=== PATIENT | male | born 1955 | race African-American/Black ===

== ENCOUNTER 2022-11-17 11:45 | Inpatient (IN) ==
[2022-11-17] MEDS ORDERED: SODIUM CHLORIDE 0.9% 1,000 ML IV SCH (15:00)
[2022-11-17] MEDS: hydrALAZINE 25 MG TABLET PO SCH ×2 (16:15→20:42)
[2022-11-17 19:59] LABS: Mucus,Urine Occasional /LPF (Occasional); RBC,Urine 5 /HPF (0-4); Squamous Epithelial Cell,Urine Occasional /HPF (0-10)
[2022-11-17 20:00] LABS: Protein,Urine >=300 mg/dL (Negative); Urine Appearance Clear (Clear); Urine Color Yellow (Yellow); Urine Specific Gravity 1.025 (1.001-1.035); Urine pH 5.5 (4.5-8.0)
[2022-11-17 20:01] LABS: Bilirubin,Urine Negative (Negative); Blood, Urine Moderate mg/dL (Negative); Glucose,Urine (UA) Negative (Negative); Ketones,Urine Negative (Negative); Nitrite,Urine Negative (Negative); Urine Urobilinogen 0.2 eU/dL (<2.0)
[2022-11-17] MEDS: METOPROLOL SUCCINATE XL 25 MG TABLET PO SCH (20:41)
[2022-11-17] MEDS: ATORVASTATIN 40 MG TABLET PO SCH (20:42)
[2022-11-18 05:15] LABS: Basophils % 0.3 % (0.0-0.8); Eosinophils % 0.1 % (0.00-10.9); Hematocrit 27.7 VOL% (42.0-52.0); Hemoglobin 8.9 GM/DL (14.0-18.0); Immature Granulocytes % 0.4 %; Immature Granulocytes Absolute 0.05 #; Lymphocytes # 0.7 10*3/uL (1.4-4.0); Lymphocytes % 5.4 % (21.2-54.2); Mean Corpuscular HGB Conc 32.1 GM/DL (32-36); Mean Corpuscular Volume 91.4 FL (87-102); Mean Platelet Volume 10.4 FL (9.6-12.0); Monocytes # 0.3 10*3/uL (0.11-0.8); Monocytes % 2.6 % (1.7-12.7); Neutrophils % 91.2 % (38.7-73.9); Platelet Count 414 T/CUMM (130-400); Red Blood Count 3.03 MC/CUMM (3.8-5.5); Red Cell Distribution Width 13.7 % (9.3-17.3); White Blood Count 13.3 T/CUMM (4-12)
[2022-11-18 05:36] LABS: Lymphocytes 5 % (20-55); Total Cells Counted 100
[2022-11-18 05:37] LABS: Microcytosis 1+
[2022-11-18 05:44] LABS: Albumin 2.6 G/DL (3.4-5.0); Bilirubin,Total 0.5 MG/DL (0.20-1.00); Osmolality,Calculated 316.7 MOS/KG (273-304); Potassium 5.5 MMOL/L (3.5-5.1); Total Protein 7.4 G/DL (6.4-8.2)
[2022-11-18 05:54] LABS: Folate 10.07 NG/ML (5.38-24.0)
[2022-11-18 06:02] LABS: % Iron Saturation 5.9 % (18-50); Ferritin 259.4 ng/mL (26-388)
[2022-11-18 06:15] LABS: Risk Ratio 5.8; VLDL Cholesterol 29.8 MG/DL
[2022-11-18 06:20] LABS: Hepatitis B Core IgM Quant 0.06 Index; Hepatitis B Surface Ag Quant < 0.10 Index; Hepatitis B Surface Ag Result Non-Reactive (NonReactive); Hepatitis C Virus Ab Quant 0.02 Index; Hepatitis C Virus Ab Result Non-Reactive (NonReactive)
[2022-11-18 07:09] LABS: Total Protein (Chem) 7.4 G/DL (6.4-8.3)
[2022-11-18 08:59] LABS: Albumin (SPE) 3.7 G/DL (3.2-5.3); Albumin (SPE) Rel % 50.3 %; Alpha 1 (SPE) 0.4 G/DL (0.1-0.4); Alpha 1 (SPE) Rel % 4.9 %; Alpha 2 (SPE) Rel % 13.1 %; Beta (SPE) 0.8 G/DL (0.5-1.1); Gamma (SPE) 1.5 G/DL (0.7-1.7); Gamma (SPE) Rel % 20.7 %
[2022-11-18] MEDS ORDERED: METOPROLOL SUCCINATE XL 25 MG TABLET PO SCH (09:00)
[2022-11-18] MEDS: DOCUSATE SODIUM 100 MG CAPSULE PO SCH ×2 (09:11→21:07)
[2022-11-18] MEDS: METOPROLOL SUCCINATE XL 25 MG TABLET PO SCH (09:11)
[2022-11-18] MEDS: FERROUS SULFATE 325 MG TABLET PO SCH ×2 (09:11→21:07)
[2022-11-18] MEDS ORDERED: BISACODYL 5 MG TABLET PO ONE (09:12)
[2022-11-18] MEDS ORDERED: amLODIPine 5 MG TABLET PO SCH (13:00)
[2022-11-18] MEDS ORDERED: hydrALAZINE 20 MG/1 ML VIAL IV PRN (15:01)
[2022-11-18] MEDS ORDERED: METOPROLOL TARTRATE 50 MG TABLET PO ONE (16:00)
[2022-11-18] MEDS ORDERED: amLODIPine 5 MG TABLET PO ONE (16:00)
[2022-11-18] MEDS: ATORVASTATIN 40 MG TABLET PO SCH (21:07)
[2022-11-19 05:28] LABS: Basophils % 0.3 % (0.0-0.8); Eosinophils # 0.1 10*3/uL (0.0-0.87); Eosinophils % 0.5 % (0.00-10.9); Hematocrit 27.2 VOL% (42.0-52.0); Hemoglobin 8.9 GM/DL (14.0-18.0); Immature Granulocytes % 0.5 %; Immature Granulocytes Absolute 0.06 #; Lymphocytes # 1.4 10*3/uL (1.4-4.0); Lymphocytes % 10.4 % (21.2-54.2); Mean Corpuscular HGB Conc 32.7 GM/DL (32-36); Mean Corpuscular Volume 90.7 FL (87-102); Mean Platelet Volume 10.2 FL (9.6-12.0); Monocytes # 0.5 10*3/uL (0.11-0.8); Monocytes % 3.9 % (1.7-12.7); Neutrophils % 84.4 % (38.7-73.9); Platelet Count 407 T/CUMM (130-400); Red Cell Distribution Width 13.6 % (9.3-17.3); White Blood Count 13.3 T/CUMM (4-12)
[2022-11-19 06:31] LABS: Calcium 9.1 MG/DL (8.5-10.1); Osmolality,Calculated 329.3 MOS/KG (273-304); Potassium 5.6 MMOL/L (3.5-5.1)
[2022-11-19] MEDS: METOPROLOL SUCCINATE XL 50 MG TABLET PO SCH (10:20)
[2022-11-19] MEDS: FERROUS SULFATE 325 MG TABLET PO SCH ×2 (10:21→21:05)
[2022-11-19] MEDS: DOCUSATE SODIUM 100 MG CAPSULE PO SCH ×2 (10:21→21:05)
[2022-11-19] MEDS: amLODIPine 10 MG TABLET PO SCH (10:21)
[2022-11-19] MEDS ORDERED: ETOMIDATE 40 MG/20 ML VIAL IV ONE (11:40)
[2022-11-19] MEDS ORDERED: LIDOCAINE 2% 5 ML VIAL ONE (11:40)
[2022-11-19] MEDS ORDERED: propofoL 200 MG/20 ML VIAL IV ONE (11:40)
[2022-11-19] MEDS ORDERED: BUPIVACAINE MPF 0.25% 10 ML VIAL ONE (11:42)
[2022-11-19] MEDS ORDERED: LIDOCAINE 1%/EPI INJ 20 ML VIAL ONE (11:42)
[2022-11-19] MEDS ORDERED: HEPARIN 5,000 UNIT/1 ML VIAL ONE (11:42)
[2022-11-19] MEDS ORDERED: ceFAZolin 2,000 MG/50 ML DUPLEX IV ONE (12:00)
[2022-11-19] MEDS ORDERED: SODIUM CHLORIDE 0.9% 250 ML IV SCH (12:00)
[2022-11-19] MEDS ORDERED: ceFAZolin 1,000 MG VIAL ONE (12:16)
[2022-11-19] MEDS: ATORVASTATIN 40 MG TABLET PO SCH (21:05)
[2022-11-20 05:12] LABS: Basophils % 0.4 % (0.0-0.8); Eosinophils # 0.2 10*3/uL (0.0-0.87); Eosinophils % 1.9 % (0.00-10.9); Hematocrit 24.7 VOL% (42.0-52.0); Hemoglobin 8.1 GM/DL (14.0-18.0); Immature Granulocytes % 0.5 %; Immature Granulocytes Absolute 0.05 #; Lymphocytes # 1.1 10*3/uL (1.4-4.0); Lymphocytes % 10.5 % (21.2-54.2); Mean Corpuscular HGB Conc 32.8 GM/DL (32-36); Mean Corpuscular Volume 88.5 FL (87-102); Mean Platelet Volume 10.3 FL (9.6-12.0); Monocytes # 0.5 10*3/uL (0.11-0.8); Neutrophils % 81.7 % (38.7-73.9); Platelet Count 390 T/CUMM (130-400); Red Blood Count 2.79 MC/CUMM (3.8-5.5); Red Cell Distribution Width 13.4 % (9.3-17.3); White Blood Count 10.2 T/CUMM (4-12)
[2022-11-20 05:36] LABS: Calcium 8.4 MG/DL (8.5-10.1); Osmolality,Calculated 315.3 MOS/KG (273-304); Potassium 4.6 MMOL/L (3.5-5.1)
[2022-11-20] MEDS: FERROUS SULFATE 325 MG TABLET PO SCH ×2 (09:49→20:32)
[2022-11-20] MEDS: DOCUSATE SODIUM 100 MG CAPSULE PO SCH ×2 (09:49→20:32)
[2022-11-20] MEDS: amLODIPine 10 MG TABLET PO SCH (09:50)
[2022-11-20] MEDS: METOPROLOL SUCCINATE XL 50 MG TABLET PO SCH (09:50)
[2022-11-20] MEDS: BISACODYL 5 MG TABLET PO PRN (09:50)
[2022-11-20] MEDS ORDERED: HEPARIN 10,000 UNIT/10 ML VIAL IV SCH (12:15)
[2022-11-20] MEDS: ONDANSETRON 4 MG/2 ML VIAL IV PRN (20:00)
[2022-11-20] MEDS: ATORVASTATIN 40 MG TABLET PO SCH (20:32)
[2022-11-21 05:06] LABS: Basophils % 0.2 % (0.0-0.8); Eosinophils # 0.2 10*3/uL (0.0-0.87); Eosinophils % 2.3 % (0.00-10.9); Hematocrit 26.9 VOL% (42.0-52.0); Hemoglobin 8.7 GM/DL (14.0-18.0); Immature Granulocytes % 0.4 %; Immature Granulocytes Absolute 0.04 #; Lymphocytes % 10.6 % (21.2-54.2); Mean Corpuscular HGB Conc 32.3 GM/DL (32-36); Mean Corpuscular Volume 90.9 FL (87-102); Mean Platelet Volume 9.9 FL (9.6-12.0); Monocytes # 0.6 10*3/uL (0.11-0.8); Monocytes % 6.5 % (1.7-12.7); Platelet Count 420 T/CUMM (130-400); Red Blood Count 2.96 MC/CUMM (3.8-5.5); Red Cell Distribution Width 13.3 % (9.3-17.3)
[2022-11-21 05:33] LABS: Calcium 8.3 MG/DL (8.5-10.1); Osmolality,Calculated 296.4 MOS/KG (273-304); Potassium 4.2 MMOL/L (3.5-5.1)
[2022-11-21] MEDS: ONDANSETRON 4 MG/2 ML VIAL IV PRN ×4 (06:20→17:32)
[2022-11-21] MEDS: METOPROLOL SUCCINATE XL 50 MG TABLET PO SCH (08:30)
[2022-11-21] MEDS: DOCUSATE SODIUM 100 MG CAPSULE PO SCH ×2 (08:30→21:27)
[2022-11-21] MEDS: FERROUS SULFATE 325 MG TABLET PO SCH ×2 (08:30→21:27)
[2022-11-21] MEDS: amLODIPine 10 MG TABLET PO SCH (08:30)
[2022-11-21] MEDS: ACETAMINOPHEN 325 MG TABLET PO PRN (12:10)
[2022-11-21] MEDS: ATORVASTATIN 40 MG TABLET PO SCH (21:28)
[2022-11-22 05:40] LABS: Basophils % 0.3 % (0.0-0.8); Eosinophils # 0.3 10*3/uL (0.0-0.87); Eosinophils % 3.3 % (0.00-10.9); Hematocrit 27.7 VOL% (42.0-52.0); Hemoglobin 8.8 GM/DL (14.0-18.0); Immature Granulocytes % 0.4 %; Immature Granulocytes Absolute 0.04 #; Lymphocytes % 9.6 % (21.2-54.2); Mean Corpuscular HGB Conc 31.8 GM/DL (32-36); Mean Corpuscular Volume 90.5 FL (87-102); Mean Platelet Volume 9.6 FL (9.6-12.0); Monocytes # 0.8 10*3/uL (0.11-0.8); Monocytes % 7.4 % (1.7-12.7); Platelet Count 430 T/CUMM (130-400); Red Blood Count 3.06 MC/CUMM (3.8-5.5); Red Cell Distribution Width 13.1 % (9.3-17.3); White Blood Count 10.4 T/CUMM (4-12)
[2022-11-22] MEDS: PANTOPRAZOLE 40 MG VIAL IV SCH (06:09)
[2022-11-22 06:16] LABS: Calcium 8.7 MG/DL (8.5-10.1); Osmolality,Calculated 286.7 MOS/KG (273-304); Potassium 4.5 MMOL/L (3.5-5.1)
[2022-11-22] MEDS: amLODIPine 10 MG TABLET PO SCH (08:26)
[2022-11-22] MEDS: METOPROLOL SUCCINATE XL 50 MG TABLET PO SCH (08:26)
[2022-11-22] MEDS: FERROUS SULFATE 325 MG TABLET PO SCH ×2 (08:26→21:45)
[2022-11-22] MEDS: DOCUSATE SODIUM 100 MG CAPSULE PO SCH ×2 (08:26→21:45)
[2022-11-22] MEDS: ATORVASTATIN 40 MG TABLET PO SCH (21:45)
[2022-11-23 05:37] LABS: Basophils # 0.1 10*3/uL (0.0-0.2); Basophils % 0.7 % (0.0-0.8); Eosinophils # 0.5 10*3/uL (0.0-0.87); Eosinophils % 5.3 % (0.00-10.9); Hemoglobin 8.9 GM/DL (14.0-18.0); Immature Granulocytes % 0.6 %; Immature Granulocytes Absolute 0.05 #; Lymphocytes # 1.2 10*3/uL (1.4-4.0); Lymphocytes % 13.6 % (21.2-54.2); Mean Corpuscular HGB Conc 31.8 GM/DL (32-36); Mean Corpuscular Volume 91.2 FL (87-102); Mean Platelet Volume 9.8 FL (9.6-12.0); Monocytes # 0.8 10*3/uL (0.11-0.8); Monocytes % 9.6 % (1.7-12.7); Neutrophils % 70.2 % (38.7-73.9); Platelet Count 405 T/CUMM (130-400); Red Blood Count 3.07 MC/CUMM (3.8-5.5); Red Cell Distribution Width 12.8 % (9.3-17.3); White Blood Count 8.7 T/CUMM (4-12)
[2022-11-23] MEDS: PANTOPRAZOLE 40 MG VIAL IV SCH (05:47)
[2022-11-23 05:55] LABS: Calcium 8.4 MG/DL (8.5-10.1); Osmolality,Calculated 280.1 MOS/KG (273-304); Potassium 4.3 MMOL/L (3.5-5.1)
[2022-11-23] MEDS: DOCUSATE SODIUM 100 MG CAPSULE PO SCH ×2 (08:15→20:36)
[2022-11-23] MEDS: amLODIPine 10 MG TABLET PO SCH (08:15)
[2022-11-23] MEDS: FERROUS SULFATE 325 MG TABLET PO SCH ×2 (08:15→20:36)
[2022-11-23] MEDS: METOPROLOL SUCCINATE XL 50 MG TABLET PO SCH (08:15)
[2022-11-23] MEDS: ATORVASTATIN 40 MG TABLET PO SCH (20:36)
[2022-11-24] MEDS: PANTOPRAZOLE 40 MG VIAL IV SCH (05:49)
[2022-11-24 06:39] LABS: Basophils # 0.1 10*3/uL (0.0-0.2); Basophils % 0.8 % (0.0-0.8); Eosinophils # 0.4 10*3/uL (0.0-0.87); Hematocrit 29.2 VOL% (42.0-52.0); Hemoglobin 9.2 GM/DL (14.0-18.0); Immature Granulocytes % 0.5 %; Immature Granulocytes Absolute 0.05 #; Lymphocytes # 1.2 10*3/uL (1.4-4.0); Lymphocytes % 12.2 % (21.2-54.2); Mean Corpuscular HGB Conc 31.5 GM/DL (32-36); Mean Corpuscular Volume 91.5 FL (87-102); Mean Platelet Volume 9.6 FL (9.6-12.0); Monocytes # 0.8 10*3/uL (0.11-0.8); Monocytes % 7.7 % (1.7-12.7); Neutrophils % 74.8 % (38.7-73.9); Platelet Count 474 T/CUMM (130-400); Red Blood Count 3.19 MC/CUMM (3.8-5.5); Red Cell Distribution Width 12.8 % (9.3-17.3); White Blood Count 10.1 T/CUMM (4-12)
[2022-11-24 06:58] LABS: Calcium 8.2 MG/DL (8.5-10.1); Osmolality,Calculated 291.8 MOS/KG (273-304); Potassium 4.4 MMOL/L (3.5-5.1)
[2022-11-24 07:57] LABS: PT Patient Result 10.9 SECS (10.1-12.1)
[2022-11-24] MEDS: METOPROLOL SUCCINATE XL 50 MG TABLET PO SCH (08:23)
[2022-11-24] MEDS: amLODIPine 10 MG TABLET PO SCH (08:23)
[2022-11-24] MEDS: FERROUS SULFATE 325 MG TABLET PO SCH ×2 (08:23→21:32)
[2022-11-24] MEDS: DOCUSATE SODIUM 100 MG CAPSULE PO SCH ×2 (08:23→21:31)
[2022-11-24] MEDS ORDERED: DIAZEPAM 5 MG TABLET PO ONE (10:41)
[2022-11-24] MEDS: ATORVASTATIN 40 MG TABLET PO SCH (21:32)
[2022-11-25] MEDS: PANTOPRAZOLE 40 MG VIAL IV SCH (05:48)
[2022-11-25 05:53] LABS: Hematocrit 22.7 VOL% (42.0-52.0); Hemoglobin 7.6 GM/DL (14.0-18.0)
[2022-11-25 05:59] LABS: Calcium 7.7 MG/DL (8.5-10.1); Osmolality,Calculated 297.7 MOS/KG (273-304); Potassium 4.7 MMOL/L (3.5-5.1)
[2022-11-25 08:02] LABS: Basophils % 0.4 % (0.0-0.8); Eosinophils # 0.3 10*3/uL (0.0-0.87); Eosinophils % 2.9 % (0.00-10.9); Hematocrit 25.2 VOL% (42.0-52.0); Hemoglobin 8.1 GM/DL (14.0-18.0); Immature Granulocytes % 0.5 %; Immature Granulocytes Absolute 0.04 #; Lymphocytes % 12.2 % (21.2-54.2); Mean Corpuscular HGB Conc 32.1 GM/DL (32-36); Mean Corpuscular Volume 91.3 FL (87-102); Mean Platelet Volume 8.8 FL (9.6-12.0); Monocytes # 0.8 10*3/uL (0.11-0.8); Monocytes % 9.9 % (1.7-12.7); Neutrophils % 74.1 % (38.7-73.9); Platelet Count 356 T/CUMM (130-400); Red Blood Count 2.76 MC/CUMM (3.8-5.5); Red Cell Distribution Width 12.8 % (9.3-17.3); White Blood Count 8.5 T/CUMM (4-12)
[2022-11-25] MEDS: SODIUM CHLORIDE 0.9% 1,000 ML IV SCH (08:59)
[2022-11-25] MEDS ORDERED: propofoL 200 MG/20 ML VIAL IV ONE (09:33)
[2022-11-25] MEDS ORDERED: LIDOCAINE 2% 5 ML VIAL ONE (09:33)
[2022-11-25] MEDS: DOCUSATE SODIUM 100 MG CAPSULE PO SCH ×2 (10:35→21:28)
[2022-11-25] MEDS: FERROUS SULFATE 325 MG TABLET PO SCH ×2 (10:35→21:28)
[2022-11-25] MEDS: amLODIPine 10 MG TABLET PO SCH (14:53)
[2022-11-25] MEDS: METOPROLOL SUCCINATE XL 50 MG TABLET PO SCH (14:53)
[2022-11-25] MEDS: ACETAMINOPHEN 325 MG TABLET PO PRN (21:26)
[2022-11-25] MEDS: ATORVASTATIN 40 MG TABLET PO SCH (21:32)
[2022-11-26 05:48] LABS: Basophils % 0.4 % (0.0-0.8); Eosinophils # 0.2 10*3/uL (0.0-0.87); Eosinophils % 3.3 % (0.00-10.9); Hematocrit 23.9 VOL% (42.0-52.0); Hemoglobin 7.9 GM/DL (14.0-18.0); Immature Granulocytes % 0.6 %; Immature Granulocytes Absolute 0.04 #; Lymphocytes % 14.1 % (21.2-54.2); Mean Corpuscular HGB Conc 33.1 GM/DL (32-36); Mean Corpuscular Volume 90.5 FL (87-102); Mean Platelet Volume 9.2 FL (9.6-12.0); Monocytes # 0.8 10*3/uL (0.11-0.8); Monocytes % 11.9 % (1.7-12.7); Neutrophils % 69.7 % (38.7-73.9); Platelet Count 358 T/CUMM (130-400); Red Blood Count 2.64 MC/CUMM (3.8-5.5); Red Cell Distribution Width 12.9 % (9.3-17.3)
[2022-11-26 06:10] LABS: Osmolality,Calculated 295.4 MOS/KG (273-304); Potassium 4.9 MMOL/L (3.5-5.1)
[2022-11-26] MEDS: PANTOPRAZOLE 40 MG VIAL IV SCH (07:29)
[2022-11-26] MEDS: DOCUSATE SODIUM 100 MG CAPSULE PO SCH ×2 (09:11→21:09)
[2022-11-26] MEDS: FERROUS SULFATE 325 MG TABLET PO SCH ×2 (09:11→21:09)
[2022-11-26] MEDS: METOPROLOL SUCCINATE XL 50 MG TABLET PO SCH (09:11)
[2022-11-26] MEDS: amLODIPine 10 MG TABLET PO SCH (09:12)
[2022-11-26] MEDS: SODIUM CHLORIDE 0.9% 1,000 ML IV SCH (20:00)
[2022-11-26] MEDS: ATORVASTATIN 40 MG TABLET PO SCH (21:09)
[2022-11-27] MEDS: PANTOPRAZOLE 40 MG VIAL IV SCH (05:48)
[2022-11-27] MEDS: FERROUS SULFATE 325 MG TABLET PO SCH ×2 (08:22→20:14)
[2022-11-27] MEDS: amLODIPine 10 MG TABLET PO SCH (08:22)
[2022-11-27] MEDS: DOCUSATE SODIUM 100 MG CAPSULE PO SCH ×2 (08:22→20:14)
[2022-11-27] MEDS: METOPROLOL SUCCINATE XL 50 MG TABLET PO SCH (08:22)
[2022-11-27] MEDS: SODIUM CHLORIDE 0.9% 1,000 ML IV SCH (16:25)
[2022-11-27] MEDS: BISACODYL 5 MG TABLET PO PRN (18:22)
[2022-11-27] MEDS: ATORVASTATIN 40 MG TABLET PO SCH (20:14)
[2022-11-28] MEDS: PANTOPRAZOLE 40 MG VIAL IV SCH (05:34)
[2022-11-28] MEDS: amLODIPine 10 MG TABLET PO SCH (08:44)
[2022-11-28] MEDS: METOPROLOL SUCCINATE XL 50 MG TABLET PO SCH (08:44)
[2022-11-28] MEDS: DOCUSATE SODIUM 100 MG CAPSULE PO SCH (08:44)
[2022-11-28] MEDS: FERROUS SULFATE 325 MG TABLET PO SCH (08:44)
[2022-11-28 13:15] VITALS: BP 140/76
== END 2022-11-28 16:35 | disposition home or self-care (01) | DRG 673 ==
LOC: N.2E → OBSVTOIN 13:16 → SUATTDRO 13:16
PROVIDERS: ADMIT Internal Medicine; ATTEND Hospitalist